=== PATIENT | female | born 1990 | race Two or more races ===

== ENCOUNTER 2019-12-01 09:41 | Inpatient (IN) | payer MEDICAID ==
[~2019-12-01] VITALS: Ht 167.6 cm; Wt 86.4 kg
[2019-12-01 10:25] LABS: Basophils # (auto) 0 10 ^3/uL (0-0.2); Basophils % (auto) 0.2 % (0.0-2.0); Eosinophils # (auto) 0 10 ^3/uL (0-0.8); Hematocrit 36.5 % (36.0-46.0); Hemoglobin 12.7 g/dL (12.2-16.2); Lymphocytes # (auto) 0.9 10 ^3/uL (0.4-5.4); Lymphocytes % (auto) 6.2 % (10.0-50.0); Mean Corpuscular Hemoglobin 31.2 pg (28.0-32.0); Mean Corpuscular Hgb Conc. 34.8 g/dL (32.0-36.0); Mean Corpuscular Volume 89.6 fL (80.0-100.0); Monocytes # (auto) 0.6 10 ^3/uL (0-1.3); Monocytes % (auto) 4.5 % (0.0-12.0); Neutrophils # (auto) 12.4 10 ^3/uL (1.6-8.6); Neutrophils % (auto) 89.1 % (37.0-80.0); Platelet Count (auto) 305 10^3/uL (140-450); Red Blood Cells 4.08 10^6/uL (4.0-5.20); Red Cell Distribution Width 13.1 % (11.8-14.3); White Blood Cell 13.9 10^3/uL (4.4-10.8)
[2019-12-01] MEDS ORDERED: SODIUM CHLORIDE 0.9% 1,000 ML IV ONE (10:34)
[2019-12-01] MEDS ORDERED: cefTRIAXone 1GM/50ML D5W 50 ML IV ONE (10:45)
[2019-12-01] MEDS ORDERED: DexAMETHasone SOD PHOS 10MG/1ML VIAL INJ IV ONE (10:45)
[2019-12-01] MEDS ORDERED: AZITHROMYCIN 500MG/ 250ML 250 ML IV ONE (10:45)
[2019-12-01 11:14] LABS: Albumin 2.7 g/dL (3.4-5.0); Calcium 8.6 mg/dL (8.5-10.1); Potassium 3.1 mmol/L (3.5-5.1)
[2019-12-01 11:17] LABS: BUN/Creatinine Ratio 15.4; Bilirubin, Total 1.4 mg/dL (0.2-1.0); Total Protein 7.6 g/dL (6.4-8.2)
[2019-12-01 13:44] LABS: Urine Bacteria NONE SEEN /hpf (None Seen); Urine Blood Negative /uL (Negative); Urine Mucus FEW (None Seen); Urine Specific Gravity 1.033 (1.001-1.035); Urine WBC 5 /hpf (0 - 5)
[2019-12-01 14:10] LABS: INR 0.92 (0.9-1.15); Partial Thromboplastin Time 30.7 sec (23.0-31.2)
[2019-12-01] MEDS ORDERED: ACETAMINOPHEN 500 MG TAB PO ONE (16:00)
[2019-12-01] MEDS ORDERED: POTASSIUM EFFERVESENT TAB 25 MEQ PO ONE (16:30)
[2019-12-01] MEDS ORDERED: MORPHINE SULF INJ 2 MG/ML SYRINGE 1ML IV PRN ×2 (18:15→20:15)
[2019-12-01] MEDS ORDERED: NITROGLYCERIN 0.4 MG SL TAB SL PRN ×2 (18:15→20:15)
[2019-12-01] MEDS ORDERED: DexAMETHasone 4 MG TAB PO ONE (20:00)
[2019-12-01] MEDS ORDERED: POTASSIUM CHLORIDE 40 MEQ, LIDOCAINE 1% (LOCAL ANESTH.) 4 ML in SODIUM CHL 0.9% 100 ML IV ONE (20:00)
[2019-12-01] MEDS ORDERED: SODIUM CHLORIDE 0.9% 1,000 ML IV SCH (20:03)
--- NOTE | 2019-12-01 20:05 | NUR ---
Telemetry admit from ER DIGNAXUAN Day admitted to Telemetry unit after SBAR received. Patient oriented to LINDA BRADLEY RN primary RN, unit, room, bed, and unit policies regarding patient care and visiting hours. Patient now on continuous telemetry monitoring, tele box # 16 and telemetry reading on arrival to unit is Sinus Rhythm at 83BPM. Patient placed on bedside oxygen, weighed by bed scale and encouraged to call if they need something. All questions and concerns addressed, patient verbalized understanding.
[2019-12-01] MEDS ORDERED: ACETAMINOPHEN 500 MG TAB PO PRN (20:15)
[2019-12-01 20:42] LABS: Alcohol, Urine < 3.0 mg/dL (0-10); Amphetamine Screen, Urine NEGATIVE (NEGATIVE); Benzodiazephine Screen, Urine NEGATIVE (NEGATIVE); Cannabinoid Screen, Urine NEGATIVE (NEGATIVE); Cocaine Screen, Urine NEGATIVE (NEGATIVE); Opiate Scree,Urine NEGATIVE (NEGATIVE)
[2019-12-01 20:43] LABS: Barbiturate Scree,Urine NEGATIVE (NEGATIVE); Phencyclidine Screen, Urine NEGATIVE (NEGATIVE)
[2019-12-01] MEDS: CLINDAMYCIN 300MG IV 50 ML IV SCH (22:04)
[2019-12-01] MEDS ORDERED: POTASSIUM CHL 20MEQ/100ML 200 ML IV ONE (23:14)
[2019-12-01] MEDS: POTASSIUM CHL 20MEQ/100ML 100 ML IV SCH (23:53)
[2019-12-02] VITALS (8 sets, daily range): BP systolic 98–108; BP diastolic 54–72
[2019-12-02 00:23] LABS: Basophils # (auto) 0 10 ^3/uL (0-0.2); Eosinophils # (auto) 0 10 ^3/uL (0-0.8); Hematocrit 35.5 % (36.0-46.0); Hemoglobin 12.1 g/dL (12.2-16.2); Lymphocytes # (auto) 0.8 10 ^3/uL (0.4-5.4); Lymphocytes % (auto) 8.6 % (10.0-50.0); Mean Corpuscular Hgb Conc. 34.2 g/dL (32.0-36.0); Mean Corpuscular Volume 90.7 fL (80.0-100.0); Monocytes # (auto) 0.4 10 ^3/uL (0-1.3); Monocytes % (auto) 3.8 % (0.0-12.0); Neutrophils # (auto) 8.6 10 ^3/uL (1.6-8.6); Neutrophils % (auto) 87.6 % (37.0-80.0); Platelet Count (auto) 301 10^3/uL (140-450); Red Blood Cells 3.91 10^6/uL (4.0-5.20); Red Cell Distribution Width 13.2 % (11.8-14.3); White Blood Cell 9.8 10^3/uL (4.4-10.8)
[2019-12-02 01:22] LABS: Cholesterol 145 mg/dL (< 200); HDL Cholesterol 34 mg/dL (40-59); LDL Cholesterol 80 mg/dL (< 100); Triglycerides 235 mg/dL (< 150)
[2019-12-02] MEDS: POTASSIUM CHL 20MEQ/100ML 100 ML IV SCH (03:57)
[2019-12-02] MEDS: CLINDAMYCIN 300MG IV 50 ML IV SCH ×3 (05:42→21:53)
[2019-12-02 05:46] LABS: Basophils # (auto) 0 10 ^3/uL (0-0.2); Basophils % (auto) 0.1 % (0.0-2.0); Eosinophils # (auto) 0 10 ^3/uL (0-0.8); Hematocrit 35.2 % (36.0-46.0); Hemoglobin 11.7 g/dL (12.2-16.2); Lymphocytes # (auto) 0.8 10 ^3/uL (0.4-5.4); Lymphocytes % (auto) 8.8 % (10.0-50.0); Mean Corpuscular Hemoglobin 30.1 pg (28.0-32.0); Mean Corpuscular Hgb Conc. 33.3 g/dL (32.0-36.0); Mean Corpuscular Volume 90.6 fL (80.0-100.0); Monocytes # (auto) 0.4 10 ^3/uL (0-1.3); Monocytes % (auto) 4.8 % (0.0-12.0); Neutrophils # (auto) 7.9 10 ^3/uL (1.6-8.6); Neutrophils % (auto) 86.3 % (37.0-80.0); Nucleated Red Blood Cells % 0.1 %; Platelet Count (auto) 306 10^3/uL (140-450); Red Blood Cells 3.89 10^6/uL (4.0-5.20); Red Cell Distribution Width 13.1 % (11.8-14.3); White Blood Cell 9.2 10^3/uL (4.4-10.8)
[2019-12-02 05:59] LABS: INR 0.91 (0.9-1.15); Partial Thromboplastin Time 29.7 sec (23.0-31.2)
[2019-12-02 06:03] LABS: Chloride 104 mmol/L (98-107); Potassium 3.7 mmol/L (3.5-5.1); Sodium 135 mmol/L (136-145)
[2019-12-02 06:17] LABS: Alanine Aminotransferase 16 U/L (13-56); Albumin 2.3 g/dL (3.4-5.0); Alkaline Phosphatase 66 U/L (45-117); Anion Gap 7 (5-15); Aspartate Aminotransferase 15 U/L (15-37); BUN/Creatinine Ratio 26.7; Blood Urea Nitrogen 8 mg/dL (7-18); Calcium 8.3 mg/dL (8.5-10.1); Carbon Dioxide 24 mmol/L (21-32); GFR African American 341 mL/min; GFR Non-African American 282 mL/min; Glucose 131 mg/dL (74-106); Magnesium 2.3 mg/dL (1.6-2.6); Phosphorus 3.2 mg/dL (2.5-4.90); Total Protein 6.9 g/dL (6.4-8.2); Uric Acid 3.4 mg/dL (2.6-6.0)
[2019-12-02] MEDS: ACETAMINOPHEN 325 MG TAB PO PRN ×2 (06:53→22:21)
--- NOTE | 2019-12-02 07:35 | NUR ---
Opening Shift Note Assumed care of patient, awake and alert. No S/S of distress, SOB at rest and with activity. Reports weakness, and back pain. Instructed on POC and to call for assist PRN, will continue to monitor for changes Q1hr and PRN.
[2019-12-02] MEDS: ASCORBIC ACID 1,000 MG TAB PO SCH (10:19)
[2019-12-02] MEDS: cefTRIAXone 1GM/50ML D5W 50 ML IV SCH (10:19)
[2019-12-02] MEDS: DexAMETHasone 4 MG TAB PO SCH (10:19)
[2019-12-02] MEDS: POTASSIUM CHL 20 Meq TABLET PO SCH (10:19)
[2019-12-02] MEDS: CHOLECALCIFEROL (VITD3) 2,000 UNIT CAP PO SCH (10:20)
[2019-12-02] MEDS: ENOXAPARIN SOD 40 MG/0.4 ML SYRINGE SC SCH (10:20)
[2019-12-02] MEDS: ONDANSETRON HCL 4 MG/2 ML VIAL IV PRN (11:04)
[2019-12-02] MEDS: ALUM & MAG HYDROX-SIMETH LIQ(MAALOX) 30 ML PO PRN (15:47)
--- NOTE | 2019-12-02 19:10 | NUR ---
Opening Shift Note Received report from jazmyn Gutierrez RN. Assumed care of patient, awake and alert. No S/S of distress, but SOB at rest and with slight activity. Patient reports weakness, and back pain. Instructed on POC and to call for assist PRN, will continue to monitor for changes Q1hr and PRN.
--- NOTE | 2019-12-02 20:30 | NUR ---
ROUNDS Assisted patient to and from the commode. No bowel movement this time. Patient urinated.
[2019-12-03] VITALS (7 sets, daily range): BP systolic 90–102; BP diastolic 51–61
[2019-12-03] MEDS: CLINDAMYCIN 300MG IV 50 ML IV SCH ×2 (05:37→15:34)
[2019-12-03] MEDS: ALUM & MAG HYDROX-SIMETH LIQ(MAALOX) 30 ML PO PRN (06:39)
[2019-12-03] MEDS: ACETAMINOPHEN 325 MG TAB PO PRN ×2 (06:39→18:20)
--- NOTE | 2019-12-03 07:30 | NUR ---
Opening Shift Note Assumed care of patient, awake and alert. No S/S of distress, SOB with activity, reports chest pain. Instructed on POC and to call for assist PRN, will continue to monitor for changes Q1hr and PRN.
[2019-12-03] MEDS: ONDANSETRON HCL 4 MG/2 ML VIAL IV PRN (09:26)
[2019-12-03] MEDS: cefTRIAXone 1GM/50ML D5W 50 ML IV SCH (10:46)
[2019-12-03] MEDS: DexAMETHasone 4 MG TAB PO SCH (10:46)
[2019-12-03] MEDS: ENOXAPARIN SOD 40 MG/0.4 ML SYRINGE SC SCH (10:47)
[2019-12-03] MEDS: POTASSIUM CHL 20 Meq TABLET PO SCH (10:47)
[2019-12-03] MEDS: ASCORBIC ACID 1,000 MG TAB PO SCH (10:47)
[2019-12-03] MEDS: CHOLECALCIFEROL (VITD3) 2,000 UNIT CAP PO SCH (10:47)
[2019-12-03] MEDS ORDERED: AZITHROMYCIN 250 MG TAB PO ONE (16:45)
--- NOTE | 2019-12-03 19:30 | NUR ---
Opening Shift Note Assumed care of patient, awake and alert. No S/S of distress/SOB or pain. Patient on 10L Oxymizer. Instructed on POC and to call for assist PRN, will continue to monitor for changes Q1hr and PRN.
[2019-12-04] VITALS (7 sets, daily range): BP systolic 90–110; BP diastolic 54–74
[2019-12-04] MEDS: ACETAMINOPHEN 325 MG TAB PO PRN (03:03)
--- NOTE | 2019-12-04 03:03 | NUR ---
Pain Patient c/o pain 3 to stomach and requested Tylenol. Pain medication administered.
--- NOTE | 2019-12-04 04:03 | NUR ---
RE Pain Patient resting with eyes closed, no sign of pain or distress. Will continue to monitor.
--- NOTE | 2019-12-04 06:50 | NUR ---
Respiratory note: PT IS RESTING COMFORTABLY. NO RESPIRATORY DISTRESS NOTED. SPO2 97% ON 3L OXYMIZER, HR 72, RR 18, BS CLEAR/DIMINISHED BILATERALLY. WILL CONTINUE TO MONITOR PT.
--- NOTE | 2019-12-04 08:00 | NUR ---
Received pt resting in bed, call light with in reach, no pain noted or reported, will continue to monitor pt.
--- NOTE | 2019-12-04 09:30 | NUR ---
Incentive spirometer given and educated on the importance, the need, how, and how often to use it, pt verbalized understanding, returned demonstration done, pt was able to do up to 500ml,
[2019-12-04] MEDS: cefTRIAXone 1GM/50ML D5W 50 ML IV SCH (10:10)
[2019-12-04] MEDS: CHOLECALCIFEROL (VITD3) 2,000 UNIT CAP PO SCH (10:11)
[2019-12-04] MEDS: AZITHROMYCIN 250 MG TAB PO SCH (10:11)
[2019-12-04] MEDS: ASCORBIC ACID 1,000 MG TAB PO SCH (10:11)
[2019-12-04] MEDS: POTASSIUM CHL 20 Meq TABLET PO SCH (10:11)
[2019-12-04] MEDS: ENOXAPARIN SOD 40 MG/0.4 ML SYRINGE SC SCH (10:11)
[2019-12-04] MEDS: DexAMETHasone 4 MG TAB PO SCH (10:11)
--- NOTE | 2019-12-04 12:57 | NUR ---
Est energy needs 5519-4189 kcal (20-22 kcal/kg BW 93.4kg) Est protein needs 59-89g (1-1.5g/kg IBW 59.1kg) Will reassess prn. Addendum: 12/04/19 at [address] Amended: Links added.
--- NOTE | 2019-12-04 17:40 | NUR ---
Dr. Noel / deng at bed side to see pt. Doctor discussed the plan of care with pt.
--- NOTE | 2019-12-04 17:49 | NUR ---
ABG DRAWN FROM RIGHT RADIAL ON 3L OXYMIZER. RESULTS UPDATED ON RAPIDClassifEyeM. NO CRITICAL VALUES.
--- NOTE | 2019-12-04 17:59 | NUR ---
Dr. Figueroa at bed side to see pt, doctor discussed the plan of care with pt.
--- NOTE | 2019-12-04 19:20 | NUR ---
Opening Shift Note Assumed care of patient, awake and alert. No S/S of distress/SOB or pain. Patient on 3L oxymizer. Instructed on POC and to call for assist PRN, will continue to monitor for changes Q1hr and PRN.
[2019-12-05] VITALS (7 sets, daily range): BP systolic 106–115; BP diastolic 68–76
[2019-12-05 07:31] LABS: Basophils # (auto) 0 10 ^3/uL (0-0.2); Basophils % (auto) 0.1 % (0.0-2.0); Eosinophils # (auto) 0.1 10 ^3/uL (0-0.8); Eosinophils % (auto) 0.6 % (0.0-7.0); Hematocrit 34.1 % (36.0-46.0); Hemoglobin 11.9 g/dL (12.2-16.2); Lymphocytes # (auto) 1.5 10 ^3/uL (0.4-5.4); Lymphocytes % (auto) 16.4 % (10.0-50.0); Mean Corpuscular Hemoglobin 31.3 pg (28.0-32.0); Mean Corpuscular Hgb Conc. 34.8 g/dL (32.0-36.0); Monocytes # (auto) 0.7 10 ^3/uL (0-1.3); Monocytes % (auto) 7.5 % (0.0-12.0); Neutrophils # (auto) 6.7 10 ^3/uL (1.6-8.6); Neutrophils % (auto) 75.4 % (37.0-80.0); Platelet Count (auto) 404 10^3/uL (140-450); Red Blood Cells 3.79 10^6/uL (4.0-5.20); White Blood Cell 8.9 10^3/uL (4.4-10.8)
[2019-12-05 07:42] LABS: Potassium 3.6 mmol/L (3.5-5.1)
[2019-12-05 07:48] LABS: Albumin 2.4 g/dL (3.4-5.0); BUN/Creatinine Ratio 26.9; Bilirubin, Total 0.6 mg/dL (0.2-1.0); Calcium 8.6 mg/dL (8.5-10.1); Total Protein 6.5 g/dL (6.4-8.2)
--- NOTE | 2019-12-05 08:00 | NUR ---
Received pt resting in bed, call light with in reach, no pain noted or reported, currently pt's O2 sat 95% at 3 lit via oxymizer, decreased O2 to 2 lit via oxymizer, will continue to monitor pt.
[2019-12-05] MEDS: cefTRIAXone 1GM/50ML D5W 50 ML IV SCH (09:12)
[2019-12-05] MEDS: CHOLECALCIFEROL (VITD3) 2,000 UNIT CAP PO SCH (09:13)
[2019-12-05] MEDS: POTASSIUM CHL 20 Meq TABLET PO SCH (09:13)
[2019-12-05] MEDS: DexAMETHasone 4 MG TAB PO SCH (09:13)
[2019-12-05] MEDS: ASCORBIC ACID 1,000 MG TAB PO SCH (09:13)
[2019-12-05] MEDS: AZITHROMYCIN 250 MG TAB PO SCH (09:13)
[2019-12-05] MEDS: ENOXAPARIN SOD 40 MG/0.4 ML SYRINGE SC SCH (09:14)
--- NOTE | 2019-12-05 15:39 | NUR ---
Received a call from Dr. Boone / OBGYN to inquire on the pt's status, received order to do doppler tone Qshift, complete OB US, vitamins.
--- NOTE | 2019-12-05 15:44 | NUR ---
assessment Patient is a 28 year old female who is alert and oriented. Patients cognitive abilities are intact. Prior to admission patient lived home with her and family and functioned independently. Patient informed me she is able to care for her own ADLs. Per patient she will return home to her prior living arrangements post discharge and family will transport her home. Patient informed me she had no need for DME or oxygen prior to admission. Patient informed me her PCP is Dr Arana. Patient has no safety concerns regarding returning home on discharge. I informed patient I will continue to monitor and follow up as appropriate for any discharge needs. I informed patient she has a right to speak to a psychotherapist social worker regarding all care. I informed patient she has a right to participate in any and all discharge planning. Patient does not have a POA and advanced directive. I have offered patient information on POA and advanced directives. I informed the patient the advantages and benefits of having an Advanced Directive. Patient verbalized understanding and agreed to discharge plan. Addendum: 12/05/19 at 1547 by Radha ALTAMIRANO Amended: Links added.
--- NOTE | 2019-12-05 16:30 | NUR ---
heart tones heart tones of 142 bpm observed and heard via ultrasound at 18 weeks as per patient reports. Ultrasound at bedside to perform OB complete.
--- NOTE | 2019-12-05 16:40 | NUR ---
interventional technologist at bed side to do the complete ob ultrasound, L&D nurse at bed side to do the doppler tone test.
--- NOTE | 2019-12-05 18:00 | NUR ---
Dr. Duarte at bed side to see pt, doctor informed that pt was titrated from 3 lit O2 via oxymizer to 2 lit, pt's O2 sat 97%, pt changed to 2 lit via N/C, pt's O2 sat 96%, will continue to monitor pt.
--- NOTE | 2019-12-05 18:30 | NUR ---
Decreased pt's O2 to 1 lit via N/C, pt's O2 sat at 95%, will continue to monitor pt.
--- NOTE | 2019-12-05 19:20 | NUR ---
Opening Shift Note Assumed care of patient, awake and alert. No S/S of distress/SOB or pain. Patient on 1L NC. Instructed on POC and to call for assist PRN, will continue to monitor for changes Q1hr and PRN.
--- NOTE | 2019-12-05 22:19 | NUR ---
Walked Around Station Patient walked around the station on RA, patient oxygen saturation stayed between 90-91%. Patient tolerated walking well but once in the room she had a minimal cough spell.
[2019-12-06] VITALS (7 sets, daily range): BP systolic 103–113; BP diastolic 62–73
--- NOTE | 2019-12-06 04:20 | NUR ---
LD Nurse LD nurse at bedside.
--- NOTE | 2019-12-06 04:20 | NUR ---
Heart Tones heart tones obtained at 135bpm over 1 minute via doppler on 18.6 weeks EGA dated on Ultrasound on 12/05/2019.
--- NOTE | 2019-12-06 06:30 | NUR ---
Respiratory note: POX CHECK, NO RESP DISTRESS NOTED. HR 80, RR16, SPO2 96% ON 2L N/C.
--- NOTE | 2019-12-06 09:03 | NUR ---
FHT's FHT's obtained via doppler x 1 minute at 148 bpm.
[2019-12-06] MEDS: PRENATAL VITAMIN TAB PO SCH (09:40)
[2019-12-06] MEDS: POTASSIUM CHL 20 Meq TABLET PO SCH (09:40)
[2019-12-06] MEDS: DexAMETHasone 4 MG TAB PO SCH (09:40)
[2019-12-06] MEDS: cefTRIAXone 1GM/50ML D5W 50 ML IV SCH (09:40)
[2019-12-06] MEDS: ASCORBIC ACID 1,000 MG TAB PO SCH (09:41)
[2019-12-06] MEDS: ENOXAPARIN SOD 40 MG/0.4 ML SYRINGE SC SCH (09:41)
[2019-12-06] MEDS: AZITHROMYCIN 250 MG TAB PO SCH (09:41)
[2019-12-06] MEDS: CHOLECALCIFEROL (VITD3) 2,000 UNIT CAP PO SCH (09:41)
--- NOTE | 2019-12-06 23:45 | NUR ---
FHT'S FHT'S 152 OBTAINED BY THIS RN. Addendum: 12/07/19 at 0005 by HATTIE SCHMITZ RN RN FHT'S 152 obtained via doppler x1 minute by this RN. This RN called pedro sharma and informed the pt's nurse Leonie of the FHT's and that I would chart a note.
--- NOTE | 2019-12-07 00:01 | NUR ---
Mohini from L & D reported FHT's if 152.
[2019-12-07 05:11] VITALS: BP 113/73
[2019-12-07 06:38] LABS: Basophils # (auto) 0 10 ^3/uL (0-0.2); Basophils % (auto) 0.1 % (0.0-2.0); Eosinophils # (auto) 0.1 10 ^3/uL (0-0.8); Hematocrit 35.2 % (36.0-46.0); Hemoglobin 12.1 g/dL (12.2-16.2); Lymphocytes % (auto) 20.5 % (10.0-50.0); Mean Corpuscular Hgb Conc. 34.4 g/dL (32.0-36.0); Mean Corpuscular Volume 90.1 fL (80.0-100.0); Monocytes # (auto) 0.8 10 ^3/uL (0-1.3); Monocytes % (auto) 8.3 % (0.0-12.0); Neutrophils # (auto) 6.8 10 ^3/uL (1.6-8.6); Neutrophils % (auto) 70.1 % (37.0-80.0); Nucleated Red Blood Cells % 0.2 %; Platelet Count (auto) 440 10^3/uL (140-450); White Blood Cell 9.7 10^3/uL (4.4-10.8)
--- NOTE | 2019-12-07 06:40 | NUR ---
ROUNDS Patient is resting in bed awake and alert. Smiling, no distress noted and patient denies pain. Patient requested hot water and sugar.
[2019-12-07 06:50] LABS: Albumin 2.7 g/dL (3.4-5.0); Calcium 8.9 mg/dL (8.5-10.1); Potassium 3.6 mmol/L (3.5-5.1)
[2019-12-07 06:54] LABS: BUN/Creatinine Ratio 21.4; Bilirubin, Total 0.5 mg/dL (0.2-1.0); CRP High Sensitivity 0.64 mg/dL (< 0.3); Total Protein 6.9 g/dL (6.4-8.2)
[2019-12-07 08:00] VITALS: BP 110/68
[2019-12-07 09:00] VITALS: BP 109/70
--- NOTE | 2019-12-07 09:35 | NUR ---
FHT'S 150.
[2019-12-07] MEDS: PRENATAL VITAMIN TAB PO SCH (10:00)
[2019-12-07] MEDS: cefTRIAXone 1GM/50ML D5W 50 ML IV SCH (10:35)
[2019-12-07] MEDS: CHOLECALCIFEROL (VITD3) 2,000 UNIT CAP PO SCH (10:44)
[2019-12-07] MEDS: DexAMETHasone 4 MG TAB PO SCH (10:44)
[2019-12-07] MEDS: ASCORBIC ACID 1,000 MG TAB PO SCH (10:44)
[2019-12-07] MEDS: ENOXAPARIN SOD 40 MG/0.4 ML SYRINGE SC SCH (10:45)
[2019-12-07] MEDS: AZITHROMYCIN 250 MG TAB PO SCH (10:45)
--- NOTE | 2019-12-07 12:17 | NUR ---
Nutrition Followup Note Wt 86.4 kg Pt`s in COVID isolation wing, unable to talk. per records pt is 18 weeks . pt is currently on CCHO 75 gm diet with adequate PO of 75% x 4 per RN doc Est energy needs 0341-2358 kcal (20-22 kcal/kg BW 93.4kg) Est protein needs 59-89g (1-1.5g/kg IBW 59.1kg) Will reassess prn. . Labs: ALB 2.7 L BM: 1 BM today per Rn note Skin: Bs 22 low risk, full details in geriatric personal care aide note PES: Altered nutrition related lab values current/chronic medical condition aeb mod hypoalb Comments Will continue to monitor PO status, skin status, pertinent labs and weight trends. Will f/u in 3-5 days. Rec: 1) continue to monitor po intake, labs, skin 2) refer pt to [facility] on DC 3) Continue current plan of Care Addendum: 12/07/19 at [address] Rec: regular diet as pt with no hx of DM and labs wnl
[2019-12-07] MEDS ORDERED: CEPH-37 PO (12:32)
[2019-12-07] MEDS ORDERED: FAMO20TA10 PO (12:32)
[2019-12-07] MEDS ORDERED: PRED20TA2 PO (12:32)
[2019-12-07 12:45] VITALS: BP 110/77
[2019-12-07 13:00] VITALS: BP 111/70
--- NOTE | 2019-12-07 14:30 | NUR ---
patient IV discontinued, catheter intact, patient tele monitor returned to [facility], patient discharged from facility. Patient verbalized understanding of discharge instructions, and medications. Patient will see her OBGYN today.
== END 2019-12-07 14:20 | disposition home or self-care (01) | DRG 566 ==
LOC: ER 09:41 → EAST 09:42 → TELE-EAST 21:26
PROVIDERS: ADMIT Hospitalist; ATTEND Internal Medicine
DX: O98.512 Other viral diseases complicating pregnancy, second trimester (principal); U07.1 COVID-19; J12.89 Other viral pneumonia; O99.212 Obesity complicating pregnancy, second trimester; Z3A.18 18 weeks gestation of pregnancy; E87.6 Hypokalemia; O23.42 Unspecified infection of urinary tract in pregnancy, second trimester; O99.512 Diseases of the respiratory system complicating pregnancy, second trimester; E16.2 Hypoglycemia, unspecified; J98.11 Atelectasis; F32.9 Major depressive disorder, single episode, unspecified; E66.9 Obesity, unspecified; F41.1 Generalized anxiety disorder; J45.909 Unspecified asthma, uncomplicated; J96.01 Acute respiratory failure with hypoxia; O99.342 Other mental disorders complicating pregnancy, second trimester; O99.282 Endocrine, nutritional and metabolic diseases complicating pregnancy, second trimester; Z91.19 Patient's noncompliance with other medical treatment and regimen; Z90.49 Acquired absence of other specified parts of digestive tract
CPT/HCPCS: 36415; 36600; 71045; 76805; 80053; 80061; 80307; 81001; 81025; 82728; 82805; 83036; 83605; 83615; 83735; 83880; 84100; 84443; 84484; 84550; 84702; 85025; 85379; 85610; 85730; 86141; 87040; 87070; 87086; 87804; 87880; 93005; 94760; 94762; 96365; 96368; 96375; 99291; G0378; J0696; J1100; J2001; J2405; J3480; J3490

== ENCOUNTER 2024-01-13 11:15 | Observation (INO) | payer MEDICAID ==
[~2024-01-13 11:15] MED LIST: CEPH-37 PO; FAMO20TA10 PO; PRED20TA2 PO
[2024-01-13] MEDS ORDERED: METF500S3 PO (13:13)
[2024-01-13] MEDS ORDERED: GLYB5TAB8 PO (13:14)
== END 2024-01-13 13:31 | disposition home or self-care (01) ==
LOC: LDRP 11:15
PROVIDERS: ADMIT Obstetrics & Gynecology; ATTEND Obstetrics & Gynecology
DX: O24.419 Gestational diabetes mellitus in pregnancy, unspecified control (principal); O26.892 Other specified pregnancy related conditions, second trimester; N89.8 Other specified noninflammatory disorders of vagina; Z3A.28 28 weeks gestation of pregnancy
CPT/HCPCS: 59025; 81002; 82948; 82962; G0378

== ENCOUNTER 2024-02-03 01:39 | Observation (INO) | payer MEDICAID ==
[~2024-02-03 01:39] MED LIST changes: +GLYB5TAB8 PO; +METF500S3 PO
[2024-02-14] MEDS ORDERED: PREN-96 PO (13:17)
== END 2024-02-14 13:36 | disposition home or self-care (01) ==
LOC: UNDOADMOB 19:23 → LDRP 19:23
PROVIDERS: ADMIT Obstetrics & Gynecology; ATTEND Obstetrics & Gynecology
DX: O24.419 Gestational diabetes mellitus in pregnancy, unspecified control (principal); O26.893 Other specified pregnancy related conditions, third trimester; R06.02 Shortness of breath; R10.9 Unspecified abdominal pain; Z3A.32 32 weeks gestation of pregnancy
CPT/HCPCS: 76818; 82962; G0378; 59025; 81002; 82948; 94760

== ENCOUNTER 2024-02-04 16:17 | Observation (INO) | payer MEDICAID | END 2024-02-04 17:28 | disposition home or self-care (01) | LOC: LDRP 16:17 | PROVIDERS: ADMIT Obstetrics & Gynecology; ATTEND Obstetrics & Gynecology | DX: O24.419 Gestational diabetes mellitus in pregnancy, unspecified control (principal); Z3A.31 31 weeks gestation of pregnancy; Z79.899 Other long term (current) drug therapy | CPT/HCPCS: 59025; 81002; 82948; 94760; G0378 ==

== ENCOUNTER 2024-02-07 12:20 | Observation (INO) | payer MEDICAID ==
[2024-02-07] MEDS ORDERED: BETAMETHASONE ACET (30mg/5ml) 5ml Vial 6mg/ml IM ONE (13:30)
[2024-02-07] MEDS ORDERED: BETAMETHASONE ACET (30mg/5ml) 5ml Vial 6mg/ml ONE (13:37)
[2024-02-07 13:39] LABS: Urine Bacteria None Seen /hpf (None Seen)
[2024-02-07 13:51] LABS: Basophils # (auto) 0.1 10 ^3/uL (0-0.2); Basophils % (auto) 0.4 % (0.0-2.0); Eosinophils # (auto) 0.1 10 ^3/uL (0-0.8); Eosinophils % (auto) 0.8 % (0.0-7.0); Hematocrit 38.9 % (36.0-46.0); Hemoglobin 13.1 g/dL (12.2-16.2); Lymphocytes # (auto) 2.1 10 ^3/uL (0.4-5.4); Lymphocytes % (auto) 18.2 % (10.0-50.0); Mean Corpuscular Hemoglobin 30.2 pg (28.0-32.0); Mean Corpuscular Hgb Conc. 33.6 g/dL (32.0-36.0); Monocytes # (auto) 0.7 10 ^3/uL (0-1.3); Neutrophils # (auto) 8.6 10 ^3/uL (1.6-8.6); Neutrophils % (auto) 74.6 % (37.0-80.0); Platelet Count (auto) 247 10^3/uL (140-450); Red Blood Cells 4.32 10^6/uL (4.0-5.20); Red Cell Distribution Width 14.5 % (11.8-14.3); White Blood Cell 11.5 10^3/uL (4.4-10.8)
[2024-02-07 14:07] LABS: INR 0.95 (0.9-1.15); Partial Thromboplastin Time 27.8 SEC (24.5-34.5); Prothrombin Time 10.1 sec (9.3-11.8)
[2024-02-07 14:18] LABS: Alanine Aminotransferase 10 U/L (7-40); Albumin 4.3 g/dL (3.2-4.8); Alkaline Phosphatase 81 U/L (46-116); Anion Gap 11 (5-15); Aspartate Aminotransferase < 8 U/L (13-40); BUN/Creatinine Ratio 18.8 (10.0-20.0); Bilirubin, Total 0.7 mg/dL (0.2-1.0); Blood Urea Nitrogen 9 mg/dL (9-23); Calcium 9.6 mg/dL (8.7-10.4); Carbon Dioxide 21 mmol/L (20-31); Chloride 105 mmol/L (98-107); Glucose 87 mg/dL (74-106); Potassium 3.7 mmol/L (3.5-5.1); Sodium 137 mmol/L (136-145); Uric Acid 3.2 mg/dL (3.1-7.8)
[2024-02-07 14:22] LABS: Urine Blood Negative /uL (Negative); Urine Clarity Clear (Clear); Urine Color Yellow (Yellow); Urine Mucus FEW (None Seen); Urine Protein, UAD TRACE (Negative); Urine Specific Gravity 1.025 (1.001-1.035); Urine Urobilinogen Normal (Negative); Urine WBC 1 /hpf (0 - 5); Urine pH 5.5 (5.0-9.0)
[2024-02-07 16:07] LABS: Protein, Urine 21.8 mg/dL (1-14)
[2024-02-07 16:09] LABS: Amphetamine Screen, Urine Neg (NEGATIVE); Creatinine, Urine 144.26 mg/dL (30.0-125.0); Urine Protein/Creatinine Ratio 0.15
[2024-02-07 16:10] LABS: Barbiturate Scree,Urine Neg (NEGATIVE); Benzodiazephine Screen, Urine Neg (NEGATIVE); Cocaine Screen, Urine Neg (NEGATIVE)
[2024-02-07 16:11] LABS: Cannabinoid Screen, Urine Neg (NEGATIVE); Opiate Scree,Urine Neg (NEGATIVE)
[2024-02-07 16:55] LABS: Phencyclidine Screen, Urine Neg (NEGATIVE)
== END 2024-02-07 14:15 | disposition home or self-care (01) ==
LOC: LDRP 12:20 → UNDOADMOB 12:20 → LDRP 13:10
PROVIDERS: ADMIT Obstetrics & Gynecology; ATTEND Obstetrics & Gynecology
DX: O99.513 Diseases of the respiratory system complicating pregnancy, third trimester (principal); J45.909 Unspecified asthma, uncomplicated; O24.410 Gestational diabetes mellitus in pregnancy, diet controlled; R53.1 Weakness; Z3A.31 31 weeks gestation of pregnancy; Z79.899 Other long term (current) drug therapy; Z98.890 Other specified postprocedural states
CPT/HCPCS: 36415; 59025; 70551; 76818; 80053; 80307; 81001; 81002; 82570; 82948; 82962; 84156; 84484; 84550; 85025; 85610; 85730; 86850; 86900; 86901; 96360; 96361; G0378; J0702

== ENCOUNTER 2024-02-07 14:14 | Emergency (ER) | payer MEDICAID ==
[~2024-02-07] VITALS: Ht 162.6 cm; Wt 86.3 kg
[2024-02-07 14:45] VITALS: PULSE 86; RESP 24; O2SAT 98
[2024-02-07 15:30] VITALS: BP 122/81; PULSE 92; RESP 38; TEMP 98.2; O2SAT 100
[2024-02-07 15:36] LABS: Basophils # (auto) 0 10 ^3/uL (0-0.2); Basophils % (auto) 0.2 % (0.0-2.0); Eosinophils # (auto) 0.1 10 ^3/uL (0-0.8); Eosinophils % (auto) 0.6 % (0.0-7.0); Hematocrit 38.6 % (36.0-46.0); Hemoglobin 12.9 g/dL (12.2-16.2); Lymphocytes # (auto) 1.6 10 ^3/uL (0.4-5.4); Lymphocytes % (auto) 14.4 % (10.0-50.0); Mean Corpuscular Hemoglobin 30.4 pg (28.0-32.0); Mean Corpuscular Hgb Conc. 33.6 g/dL (32.0-36.0); Mean Corpuscular Volume 90.5 fL (80.0-100.0); Monocytes # (auto) 0.4 10 ^3/uL (0-1.3); Monocytes % (auto) 3.9 % (0.0-12.0); Neutrophils # (auto) 9.2 10 ^3/uL (1.6-8.6); Neutrophils % (auto) 80.9 % (37.0-80.0); Nucleated Red Blood Cells % 0.3 %; Platelet Count (auto) 239 10^3/uL (140-450); Red Blood Cells 4.26 10^6/uL (4.0-5.20); Red Cell Distribution Width 14.6 % (11.8-14.3); White Blood Cell 11.4 10^3/uL (4.4-10.8)
[2024-02-07 15:57] LABS: INR 0.96 (0.9-1.15); Partial Thromboplastin Time 28.2 SEC (24.5-34.5); Prothrombin Time 10.2 sec (9.3-11.8)
[2024-02-07 15:58] LABS: Albumin 4.2 g/dL (3.2-4.8); Alkaline Phosphatase 78 U/L (46-116); Anion Gap 11 (5-15); Aspartate Aminotransferase < 8 U/L (13-40); Bilirubin, Total 0.7 mg/dL (0.2-1.0); Calcium 9.7 mg/dL (8.7-10.4); Carbon Dioxide 18 mmol/L (20-31); Chloride 107 mmol/L (98-107); Glucose 93 mg/dL (74-106); Potassium 3.8 mmol/L (3.5-5.1); Sodium 136 mmol/L (136-145); Total Protein 7.2 g/dL (5.7-8.2)
[2024-02-07 15:59] LABS: Alanine Aminotransferase < 9 U/L (7-40); BUN/Creatinine Ratio 11.9 (10.0-20.0); Blood Urea Nitrogen < 5 mg/dL (9-23)
== END 2024-02-07 15:44 | disposition short-term general hospital (02) ==
LOC: ER 14:16
DX: O99.413 Diseases of the circulatory system complicating pregnancy, third trimester (principal); J45.909 Unspecified asthma, uncomplicated; Z3A.31 31 weeks gestation of pregnancy; Z90.49 Acquired absence of other specified parts of digestive tract
CPT/HCPCS: 36415; 80053; 85025; 85610; 85730

== ENCOUNTER 2024-02-10 13:16 | Observation (INO) | payer MEDICAID | END 2024-02-10 15:57 | disposition home or self-care (01) | LOC: LDRP 13:16 | PROVIDERS: ADMIT Obstetrics & Gynecology; ATTEND Obstetrics & Gynecology | DX: O24.419 Gestational diabetes mellitus in pregnancy, unspecified control (principal); Z3A.32 32 weeks gestation of pregnancy | CPT/HCPCS: 59025; 76818; 81002; 82948; 82962; 94760; G0378 ==

== ENCOUNTER 2024-02-17 14:03 | Observation (INO) | payer MEDICAID ==
[~2024-02-17 14:03] MED LIST changes: +PREN-96 PO
== END 2024-02-28 17:55 | disposition home or self-care (01) ==
LOC: LDRP 02-28 15:15 → UNDOADMOB 02-28 15:15 → LDRP 02-28 16:13 → UNDODISOB 02-28 17:55
PROVIDERS: ADMIT Obstetrics & Gynecology; ATTEND Obstetrics & Gynecology
DX: O24.419 Gestational diabetes mellitus in pregnancy, unspecified control (principal); Z3A.34 34 weeks gestation of pregnancy; Z79.899 Other long term (current) drug therapy; Z98.890 Other specified postprocedural states
CPT/HCPCS: 59025; 76818; 81002; 82948; 82962; G0378

== ENCOUNTER 2024-02-18 13:00 | Observation (INO) | payer MEDICAID | END 2024-02-18 14:20 | disposition home or self-care (01) | LOC: LDRP 13:00 | PROVIDERS: ADMIT Obstetrics & Gynecology; ATTEND Obstetrics & Gynecology | DX: O24.419 Gestational diabetes mellitus in pregnancy, unspecified control (principal); Z3A.33 33 weeks gestation of pregnancy; Z79.899 Other long term (current) drug therapy; Z98.890 Other specified postprocedural states | CPT/HCPCS: 59025; 76818; 81002; 82948; 82962; 94760; G0378 ==

== ENCOUNTER 2024-02-21 11:57 | Observation (INO) | payer MEDICAID | END 2024-02-21 13:25 | disposition home or self-care (01) | LOC: LDRP 11:57 → UNDOADMOB 11:57 → LDRP 12:12 → UNDODISOB 13:25 | PROVIDERS: ADMIT Obstetrics & Gynecology; ATTEND Obstetrics & Gynecology | DX: O24.419 Gestational diabetes mellitus in pregnancy, unspecified control (principal); Z3A.33 33 weeks gestation of pregnancy; Z79.899 Other long term (current) drug therapy; Z98.890 Other specified postprocedural states | CPT/HCPCS: 59025; 76818; 81002; 82948; 82962; G0378 ==

== ENCOUNTER 2024-03-03 14:06 | Observation (INO) | payer MEDICAID ==
[2024-03-03] MEDS ORDERED: METF-372 PO (15:53)
== END 2024-03-03 16:10 | disposition home or self-care (01) ==
LOC: LDRP 14:06
PROVIDERS: ADMIT Obstetrics & Gynecology; ATTEND Obstetrics & Gynecology
DX: O24.419 Gestational diabetes mellitus in pregnancy, unspecified control (principal); O62.9 Abnormality of forces of labor, unspecified; Z3A.35 35 weeks gestation of pregnancy; Z79.899 Other long term (current) drug therapy; Z98.890 Other specified postprocedural states
CPT/HCPCS: 59025; 76818; 81002; 82948; 82962; 94760; G0378

== ENCOUNTER → 2024-03-06 | Outpatient (CLI) | payer MEDICAID ==
[~2024-03-06] MED LIST changes: +METF-372 PO; -METF500S3 PO
[2024-03-06 12:40] LABS: Basophils # (auto) 0 10 ^3/uL (0-0.2); Basophils % (auto) 0.4 % (0.0-2.0); Eosinophils # (auto) 0.1 10 ^3/uL (0-0.8); Eosinophils % (auto) 0.9 % (0.0-7.0); Hematocrit 37.8 % (36.0-46.0); Hemoglobin 12.9 g/dL (12.2-16.2); Lymphocytes # (auto) 2.1 10 ^3/uL (0.4-5.4); Lymphocytes % (auto) 21.3 % (10.0-50.0); Mean Corpuscular Hemoglobin 30.7 pg (28.0-32.0); Mean Corpuscular Hgb Conc. 34.2 g/dL (32.0-36.0); Mean Corpuscular Volume 89.9 fL (80.0-100.0); Monocytes # (auto) 0.6 10 ^3/uL (0-1.3); Monocytes % (auto) 5.7 % (0.0-12.0); Neutrophils % (auto) 71.7 % (37.0-80.0); Platelet Count (auto) 236 10^3/uL (140-450); Red Blood Cells 4.21 10^6/uL (4.0-5.20); White Blood Cell 9.8 10^3/uL (4.4-10.8)
[2024-03-07 05:08] LABS: RPR Non Reactive (Non Reactive)
[2024-03-07 16:06] LABS: Chlamydia Trachomatis, NAA Negative (Negative); Neisseria gonorrhoeae, NAA Negative (Negative)
== END | disposition home or self-care (01) ==
LOC: LAB 12:18
PROVIDERS: ATTEND Obstetrics & Gynecology
DX: Z34.80 Encounter for supervision of other normal pregnancy, unspecified trimester (principal); Z72.51 High risk heterosexual behavior
CPT/HCPCS: 36415; 85025; 86592

== ENCOUNTER 2024-03-07 14:25 | Observation (INO) | payer MEDICAID ==
--- NOTE | 2024-03-13 13:44 | DVH ---
BIOPHYSICAL PROFILE HISTORY: GDMA2 TECHNIQUE: Multiple transabdominal real-time grayscale sonographic images through the gravid uterus of the fetus with duplex Doppler color flow and M-mode spectral analysis FINDINGS: BIOPHYSICAL PROFILE: breathing score: 2 movement score: 2 tone score: 2 Quantitative KIMI score: 2 (KIMI: 17 Cm.) Total score: 8 The cervix was not seen IMPRESSION: Biophysical profile score: 8/8
[2024-03-13 14:31] LABS: Basophils # (auto) 0 10 ^3/uL (0-0.2); Basophils % (auto) 0.4 % (0.0-2.0); Eosinophils # (auto) 0.1 10 ^3/uL (0-0.8); Eosinophils % (auto) 0.6 % (0.0-7.0); Hematocrit 37.6 % (36.0-46.0); Lymphocytes # (auto) 2.2 10 ^3/uL (0.4-5.4); Lymphocytes % (auto) 21.1 % (10.0-50.0); Mean Corpuscular Hemoglobin 31.3 pg (28.0-32.0); Mean Corpuscular Hgb Conc. 34.6 g/dL (32.0-36.0); Mean Corpuscular Volume 90.4 fL (80.0-100.0); Monocytes # (auto) 0.6 10 ^3/uL (0-1.3); Monocytes % (auto) 5.7 % (0.0-12.0); Neutrophils # (auto) 7.5 10 ^3/uL (1.6-8.6); Neutrophils % (auto) 72.2 % (37.0-80.0); Nucleated Red Blood Cells % 0.1 %; Platelet Count (auto) 232 10^3/uL (140-450); Red Blood Cells 4.16 10^6/uL (4.0-5.20); Red Cell Distribution Width 15.3 % (11.8-14.3); White Blood Cell 10.4 10^3/uL (4.4-10.8)
--- NOTE | 2024-03-13 20:40 | DVHDS2 ---
Physician Discharge Progress N Final Diagnosis: testing for GDM, A2 Operations or Procedures: Operations or Procedures 33yo IUP@36.6wks VSS UA wnl NST reactive (verified by 2 RNs) BPP WNL FKC/PTL precautions reviewed Condition on Discharge: Stable Disposition: Home Discharge Instructions: Diet: Consistent carbohydrate Activity: No Restrictions, As Tolerated Medications: see med list Follow Up Care: Specialist: f/u in 3 days Discharge Statement: "Patient was advised to return to the ER or call 911 if any headaches, dizziness, shortness of breath, chest pain, abdominal pain, bleeding, fevers, or worsening of medical condition. Patient was counseled about treatment plan, medications, possible side effects, patientverbalized understanding. All questions were answered to the best of my ability. This discharge took greater then 30 minutes in planning, reviewing d ocumentation, counseling the patient, and discussing with other team members." ROSA ZIMMERMAN CNM Mar 13, 2024 20:40
[2024-03-14 08:06] LABS: RPR Non Reactive (Non Reactive)
== END 2024-03-13 14:25 | disposition home or self-care (01) ==
LOC: LDRP 03-13 12:30 → UNDOADMOB 03-13 12:30 → LDRP 03-13 12:48
PROVIDERS: ADMIT Obstetrics & Gynecology; ATTEND Obstetrics & Gynecology
DX: O24.419 Gestational diabetes mellitus in pregnancy, unspecified control (principal); Z3A.36 36 weeks gestation of pregnancy
CPT/HCPCS: 36415; 76818; 82962; 83036; 85025; 86592; G0378; 59025; 81002; 82948

== ENCOUNTER 2024-03-09 19:09 | Observation (INO) | payer MEDICAID ==
[~2024-03-09] VITALS: Ht 162.6 cm; Wt 87.1 kg
--- NOTE | 2024-03-09 21:38 | DVH ---
EXAM: US BIOPHYSICAL PROFILE HISTORY: GDM A2 COMPARISON: US BIOPHYSICAL PROFILE on DOS: 03/03/24, US BIOPHYSICAL PROFILE on DOS: 02/28/24, US BIOPH YSICAL PROFILE on DOS: 02/21/24 TECHNIQUE: Multiple transabdominal real-time grayscale sonographic images through the gravid uterus of the fetus with duplex Doppler color flow and M-mode spectral analysis Findings/Impression: Single live intrauterine in vertex presentation with heart rate of 142 bpm. Sonograph er notes visualized activity and respirations. Biophysical profile was performed with 2 points for respirations, 2 points for movement, 2 points for tone and 2 points for amniotic fluid index. Biophysical profile score of 8/8. Amniotic fluid is within normal limits with KIMI 15.6 cm and MVP 5.3 cm. Normal KIMI (5-25 cm) Normal MVP (2-8 cm)
--- NOTE | 2024-03-09 22:34 | DVHDS2 ---
Physician Discharge Progress N Final Diagnosis: GDMA2 Operations or Procedures: Operations or Procedures NST/BPP/KIMI Accucheck Commentary: Commentary status reassuring Condition on Discharge: Stable Disposition: Home Discharge Instructions: Diet: Consistent carbohydrate Activity: No Restrictions, As Tolerated Follow Up/Referral: RETURN TO BIRTHPLACE ON 03/13/24 AT 12PM FOR SCHEDULED NST/BPP. FOR ANY RELATED CONCERNS GO TO NEAREST HOSPITAL Medications: PLEASE TAKE ALL MEDICATIONS PRESCRIBED AND CONTINUE CHECKING BLOOD SUGAR DIRECTED Follow Up Care: Discharge Statement: "Patient was advised to return to the ER or call 911 if any headaches, dizziness, shortness of breath, chest pain, abdominal pain, bleeding, fevers, or worsening of medical condition. Patient was counseled about treatment plan, medications, possible side effects, patientverbalized understanding. All questions were answered to the best of my ability. This discharge took greater then 30 minutes in planning, reviewing documentation, counseling the patient, and discussing with other team members." ERNESTO SANTIAGO DO Mar 09, 2024 22:34
== END 2024-03-09 22:15 | disposition home or self-care (01) ==
LOC: LDRP 19:09
PROVIDERS: ADMIT Obstetrics & Gynecology; ATTEND Obstetrics & Gynecology
DX: O24.419 Gestational diabetes mellitus in pregnancy, unspecified control (principal); Z3A.36 36 weeks gestation of pregnancy
CPT/HCPCS: 59025; 76818; 81002; 94760; G0378

== ENCOUNTER 2024-03-15 13:52 | Observation (INO) | payer MEDICAID ==
--- NOTE | 2024-03-15 15:55 | DVH ---
BIOPHYSICAL PROFILE HISTORY: gdma2 TECHNIQUE: Multiple transabdominal real-time grayscale sonographic images through the gravid uterus of the fetus with duplex Doppler color flow and M-mode spectral analysis FINDINGS: BIOPHYSICAL PROFILE: breathing score: 2 movement score: 2 tone score: 2 Quantitative KIMI score: 2 (KIMI: 17.4 Cm.) Total score: 8/8 Single live fetus in cephalic presentation. heart rate 134 beats per minute. Fundal/posterior placenta without previa or abruption IMPRESSION: 1. Biophysical profile score: 8/8 HS:Y
--- NOTE | 2024-03-15 19:04 | DVHDS2 ---
Physician Discharge Progress N Final Diagnosis: GDM Operations or Procedures: Operations or Procedures NST,SONO Condition on Discharge: Good Disposition: Home Discharge Instructions: Diet: Consistent carbohydrate Activity: No Restrictions, As Tolerated Medications: NA Follow Up Care: Specialist: 3D Discharge Statement: "Patient was advised to return to the ER or call 911 if any headaches, dizziness, shortness of breath, chest pain, abdominal pain, bleeding, fevers, or worsening of medical condition. Patient was counseled about treatment plan, medications, possible side effects, patientverbalized understanding. All questions were answered to the best of my ability. This discharge took greater then 30 minutes in planning, reviewing documentation, counseling the patient, and discussing with other team members." KAYA SANCHEZ DO Mar 15, 2024 19:04
== END 2024-03-15 16:31 | disposition home or self-care (01) ==
LOC: LDRP 15:03
PROVIDERS: ADMIT Obstetrics & Gynecology; ATTEND Obstetrics & Gynecology
DX: O24.419 Gestational diabetes mellitus in pregnancy, unspecified control (principal); O62.9 Abnormality of forces of labor, unspecified; O36.8130 Decreased fetal movements, third trimester, not applicable or unspecified; Z3A.37 37 weeks gestation of pregnancy
CPT/HCPCS: 59025; 76818; 81002; 82948; 94762; G0378

== ENCOUNTER 2024-03-20 12:25 | Observation (INO) | payer MEDICAID ==
--- NOTE | 2024-03-20 13:48 | DVH ---
BIOPHYSICAL PROFILE HISTORY: GDMA2 TECHNIQUE: Multiple transabdominal real-time grayscale sonographic images through the gravid uterus of the fetus with duplex Doppler color flow and M-mode spectral analysis FINDINGS: BIOPHYSICAL PROFILE: breathing score: 2 movement score: 2 tone score: 2 Quantitative KIMI score: 2 (KIMI: 17.6 Cm.) Total score: 8/8 Single live fetus in cephalic presentation. heart rate T2 beats per minute. Posterior placenta without previa or abruption IMPRESSION: 1. Biophysical profile score: 8/8 HS:Y
--- NOTE | 2024-03-20 19:15 | DVHDS2 ---
Physician Discharge Progress N Final Diagnosis: testing for GDM, A2 Operations or Procedures: Operations or Procedures 33yo IUP@37.6, takes insulin for GDM, A2 VSS UA wnl NST reactive (verified by 2 RNs) BPP wnl FKC/PTL/PreE precautions reviewed. Condition on Discharge: Stable Disposition: Home Discharge Instructions: Diet: Consistent carbohydrate Activity: No Restrictions, As Tolerated Medications: see med list Follow Up Care: Specialist: f/u on 03/22/24 for scheduled IOL for GDM, A2 Discharge Statement: "Patient was advised to return to the ER or call 911 if any headaches, dizziness, shortness of breath, chest pain, abdominal pain, bleeding, fevers, or worsening of medical condition. Patient was counseled about treatment plan, medications, possible side effects, patientverbalized understanding. All questions were answered to the best of my ability. This discharge took greater then 30 minutes in planning, reviewing documentation, counseling the patient, and discussing with other team members." ROSA ZIMMERMAN CNM Mar 20, 2024 19:14
== END 2024-03-20 14:27 | disposition home or self-care (01) ==
LOC: LDRP 12:25
PROVIDERS: ADMIT Obstetrics & Gynecology; ATTEND Obstetrics & Gynecology
DX: O24.419 Gestational diabetes mellitus in pregnancy, unspecified control (principal); Z3A.37 37 weeks gestation of pregnancy; Z79.899 Other long term (current) drug therapy; Z98.890 Other specified postprocedural states
CPT/HCPCS: 59025; 76818; 81002; 82948; 94760; G0378

== ENCOUNTER 2024-03-22 12:51 | Inpatient (IN) | payer MEDICAID ==
[~2024-03-22] VITALS: Ht 162.6 cm; Wt 88.0 kg
[2024-03-22] MEDS ORDERED: LIDOCAINE 2%HCL (LOCAL ANESTH.) INJ 20ML MDV IJ PRN (23:30)
[2024-03-22] MEDS ORDERED: NALBUPHINE HCL 10 MG/1ml INJECTION IV PRN (23:30)
[2024-03-22] MEDS: ACCU-CHEK COMFORT CURVE STRIP VI SCH (23:30)
[2024-03-22] MEDS ORDERED: miSOPROStol 50 MCG per PRE-CUT 1/2 TAB PO PRN (23:30)
[2024-03-23 00:21] LABS: Basophils # (auto) 0 10 ^3/uL (0-0.2); Basophils % (auto) 0.4 % (0.0-2.0); Eosinophils # (auto) 0.1 10 ^3/uL (0-0.8); Eosinophils % (auto) 0.8 % (0.0-7.0); Hematocrit 36.5 % (36.0-46.0); Hemoglobin 12.7 g/dL (12.2-16.2); Lymphocytes # (auto) 2.3 10 ^3/uL (0.4-5.4); Lymphocytes % (auto) 24.6 % (10.0-50.0); Mean Corpuscular Hemoglobin 31.2 pg (28.0-32.0); Mean Corpuscular Hgb Conc. 34.9 g/dL (32.0-36.0); Mean Corpuscular Volume 89.5 fL (80.0-100.0); Monocytes # (auto) 0.6 10 ^3/uL (0-1.3); Monocytes % (auto) 6.5 % (0.0-12.0); Neutrophils # (auto) 6.3 10 ^3/uL (1.6-8.6); Neutrophils % (auto) 67.7 % (37.0-80.0); Platelet Count (auto) 247 10^3/uL (140-450); Red Blood Cells 4.08 10^6/uL (4.0-5.20); Red Cell Distribution Width 14.9 % (11.8-14.3); White Blood Cell 9.4 10^3/uL (4.4-10.8)
[2024-03-23 00:22] LABS: Urine Bacteria None Seen /hpf (None Seen)
[2024-03-23 00:44] LABS: Alanine Aminotransferase 10 U/L (7-40); Albumin 4.2 g/dL (3.2-4.8); Alkaline Phosphatase 125 U/L (46-116); Anion Gap 10 (5-15); Aspartate Aminotransferase 8 U/L (13-40); BUN/Creatinine Ratio 14.5 (10.0-20.0); Bilirubin, Total 0.7 mg/dL (0.2-1.0); Blood Urea Nitrogen 8 mg/dL (9-23); Calcium 9.9 mg/dL (8.7-10.4); Carbon Dioxide 20 mmol/L (20-31); Chloride 106 mmol/L (98-107); Glucose 139 mg/dL (74-106); Potassium 3.6 mmol/L (3.5-5.1); Sodium 136 mmol/L (136-145); Total Protein 6.9 g/dL (5.7-8.2)
[2024-03-23 00:51] LABS: INR 0.95 (0.9-1.15); Partial Thromboplastin Time 27.6 SEC (24.5-34.5); Prothrombin Time 10.1 sec (9.3-11.8)
[2024-03-23 01:08] LABS: Urine Blood Negative /uL (Negative); Urine Clarity Clear (Clear); Urine Color Yellow (Yellow); Urine Mucus FEW (None Seen); Urine Protein, UAD TRACE (Negative); Urine Specific Gravity 1.032 (1.001-1.035); Urine Urobilinogen Normal (Negative); Urine WBC <1 /hpf (0 - 5); Urine pH 5.5 (5.0-9.0)
[2024-03-23 01:32] LABS: Amphetamine Screen, Urine Neg (NEGATIVE); Barbiturate Scree,Urine Neg (NEGATIVE); Benzodiazephine Screen, Urine Neg (NEGATIVE); Cannabinoid Screen, Urine Neg (NEGATIVE); Cocaine Screen, Urine Neg (NEGATIVE); Opiate Scree,Urine Neg (NEGATIVE); Phencyclidine Screen, Urine Neg (NEGATIVE)
--- NOTE | 2024-03-23 02:42 | DVHHP ---
ADMIT DATE: 03/22/2024 CHIEF COMPLAINT: Here for induction of labor. HISTORY OF PRESENT ILLNESS: The patient is a 33-year-old 6, para 4 with EDC 04/04, estimated gestational age of 38+ weeks, admitted for induction of labor secondary to uncontrolled GDMA2. The patient has been noncompliant and her blood sugars have been high. I discussed the management with Dr. Giang who recommends delivery. The patient is at risk for intrauterine demise. Subsequently, the patient was brought in for an induction of labor. PAST MEDICAL HISTORY: None. PAST SURGICAL HISTORY: None. SOCIAL HISTORY: None. FAMILY HISTORY: None. OBSTETRIC AND GYNECOLOGIC HISTORY: Four normal vaginal deliveries. REVIEW OF SYSTEMS: Consistent with HPI. PHYSICAL EXAMINATION: VITAL SIGNS: Stable, afebrile. HEENT: Within normal limits. CARDIOVASCULAR: Regular rate and rhythm. LUNGS: Clear to auscultation. BREASTS: Symmetrical. No masses. ABDOMEN: Gravid. Positive heart. PELVIC: 3.5 cm, 60%, -3. EXTREMITIES: No clubbing, cyanosis or edema. IMPRESSION: * Intrauterine at 38+ weeks, induction of labor for uncontrolled diabetes. * Noncompliance. PLAN: Induction of labor. We will proceed with Cytotec. Informed consent obtained. Risks, complications, alternatives, possibility of bleeding, infection, increased risk of discussed with the patient. Options reviewed. All questions answered. The patient fully understands. She wishes to proceed with planned procedure. DO STEFANY Jaimes TID: [id number] RECEIPT: [id number]
[2024-03-23] MEDS: WITCH HAZEL-GLYCERIN PAD TOP PRN (04:32)
[2024-03-23] MEDS: PHISODERM TOP SOLN 240ML BTL TOP PRN (04:33)
[2024-03-23] MEDS: DERMOPLAST 60ML BOTTLE TOP PRN (04:33)
[2024-03-23] MEDS: LACTATED RINGER'S 1,000 ML IV SCH (04:33)
[2024-03-23] MEDS ORDERED: CARBOPROST TROMETHAMINE 250 MCG/1ML VIAL IM PRN (06:00)
[2024-03-23] MEDS ORDERED: ONDANSETRON HCL 4 MG/2 ML VIAL IV PRN (06:00)
[2024-03-23] MEDS ORDERED: ePHEDrine SULFATE 50 MG/ML AMP IV ONE (07:00)
[2024-03-23] MEDS ORDERED: ROPIVACAINE HCL 200 ML ONE (07:02)
[2024-03-23] MEDS: LACTATED RINGER'S 1,000 ML IV ONE (08:05)
[2024-03-23] MEDS: LACT. RINGERS/OXYTOCIN 20UNITS 1,000 ML IV SCH (08:28)
[2024-03-23] MEDS ORDERED: TRANEXAMIC ACID 1,000 MG in SODIUM CHL 0.9% 100 ML IV ONE (09:45)
[2024-03-23] MEDS ORDERED: miSOPROStol 100 mcg TAB PR PRN (09:45)
[2024-03-23] MEDS ORDERED: miSOPROStol 100 mcg TAB SL PRN (09:45)
[2024-03-23] MEDS ORDERED: DIPHENOXYLATE W/ATROPINE 2.5 MG TAB PO SCH (10:00)
[2024-03-23] MEDS ORDERED: ACETAMINOPHEN 325 MG TAB PO PRN (11:30)
[2024-03-23] MEDS: METHYLERGONOVINE MALEATE 0.2 MG/ML AMP IM PRN (11:52)
--- NOTE | 2024-03-23 11:57 | LDN2 ---
Labor and Delivery Note Date 03/23/24 Age 33 6 Para 5 AB 1 EGA 38+ Diagnosis GDMA2, Labor- Delivered Vaginal Delivery: VTX Vacuum Assisted: No Placenta: Spontaneous Sex: Male Weight 8lb1oz Apgars 8/9 Amniotic Fluid: Clear Anesthesia Epidural Episiotomy: Yes Extension: No Repaired with 3-0 chromic EBL 100 mL Labs Blood Bank 03/22/24 23:50: Blood Type O POSITIVE Complications None ERNESTO SANTIAGO DO Mar 23, 2024 11:57
[2024-03-23] MEDS: LACT. RINGERS/OXYTOCIN 20UNITS 500 ML IV ONE ×2 (12:25→12:26)
[2024-03-23 14:10] VITALS: BP 124/78; PULSE 75; RESP 20; TEMP 98
[2024-03-23] MEDS: ROPIVACAINE HCL 400mg/200ml BAG (2mg/ml) EPI ONE (17:03)
[2024-03-23 19:00] VITALS: BP 104/64; PULSE 84; RESP 18; TEMP 97.9; O2SAT 96
[2024-03-23] MEDS: DOCUSATE SOD 100 MG CAP PO SCH (22:04)
[2024-03-23 23:00] VITALS: BP 109/76; PULSE 82; RESP 18; TEMP 97.9; O2SAT 96
[2024-03-24 03:00] VITALS: BP 92/55; PULSE 72; RESP 18; TEMP 98; O2SAT 96
[2024-03-24] MEDS: IBUPROFEN 600 MG TAB PO PRN (04:15)
--- NOTE | 2024-03-24 06:55 | DVHPN2 ---
Progress Note Date Seen: Mar 24, 2024 Subjective PPD#1 s/p Doing well, lochia minimal, no pain. Voiding well. Eating well vital signs Vital Sign Date Time Temp Pulse Resp B/P (MAP) Pulse Ox O2 Delivery O2 Flow Rate FiO2 03/24/24 03:00 98.0 72 18 92/55 (67) 96 98.0 03/23/24 19:00 Room Air Total Intake and Output 03/23/24 03/23/24 03/24/24 15:00 23:00 07:00 Output Total 1000 ml 800 ml Balance -1000 ml -800 ml medications Current Medications Medications Dose Ordered Sig/Argelia Route Start Time Stop Time Status Last Admin Dose Admin Lactated Ringer's 1,000 ml @ 125 mls/hr Q8H IV 03/22/24 23:30 03/23/24 04:33 125 MLS/HR Diagnostic Test (Pha) 1 strip Q4H 03/22/24 23:30 Mikala Salcido 1 pad PRN PRN TOP 03/22/24 23:30 03/23/24 14:18 1 PAD Sodium Lauryl Sulfate 240 ml PRN PRN TOP 03/22/24 23:30 03/23/24 14:18 240 ML Benzocaine 1 applic PRN PRN TOP 03/22/24 23:30 03/23/24 14:18 1 APPLIC Ondansetron HCl 4 mg Q4HP PRN IV 03/23/24 06:00 Ibuprofen 600 mg Q6HP PRN PO 03/23/24 11:30 03/24/24 04:15 600 MG Acetaminophen 650 mg Q4HP PRN PO 03/23/24 11:30 Docusate Sodium 200 mg HS PO 03/23/24 22:00 03/23/24 22:04 200 MG laboratory and microbiology Laboratory Tests 03/22/24 23:50 Test 03/22/24 23:50 Range/Units Serum Glucose 139 H 74-106 mg/dL Objective O: AFVSS Chest: heart and lung sounds normal. Abd soft, non-tender, fundus firm, BS, no rebound or guarding, Ext Neg Homans, Non-tender, edema Lochia - minimal Labs Reviewed Assessment/Plan PPD#1 s/p doing well Plan Advance orders D/C to home today F/U in office in 2 wk Plan discussed with: Patient NEELIMANuviaERNESTO Mar 24, 2024 06:55
--- NOTE | 2024-03-24 06:56 | DVHDS2 ---
Physician Discharge Progress N Final Diagnosis: Term , delivered Secondary Diagnosis: Gestational diabetes Operations or Procedures: Operations or Procedures Induction of labor with Condition on Discharge: Stable Disposition: Home Discharge Instructions: Diet: Consistent carbohydrate Activity: Light activity Follow Up/Referral: [address] Lerner Medications: No new meds Follow Up Care: Discharge Statement: "Patient was advised to return to the ER or call 911 if any headaches, dizziness, shortness of breath, chest pain, abdominal pain, bleeding, fevers, or worsening of medical condition. Patient was counseled about treatment plan, medications, possible side effects, patientverbalized understanding. All questions were answered to the best of my ability. This discharge took greater then 30 minutes in planning, reviewing documentation, counseling the patient, and discussing with other team members." ERNESTO SANTIAGO DO Mar 24, 2024 06:56
[2024-03-24] MEDS ORDERED: IBUP-1454 PO (06:58)
[2024-03-24 07:06] LABS: RPR Non Reactive (Non Reactive)
[2024-03-24 07:30] VITALS: BP 105/56; PULSE 69; RESP 17; TEMP 98; O2SAT 97
[2024-03-24 11:30] VITALS: BP 107/74; PULSE 90; RESP 15; TEMP 98.2; O2SAT 99
== END 2024-03-24 12:10 | disposition home or self-care (01) | DRG 560 ==
LOC: LDRP 23:19
PROVIDERS: ADMIT Obstetrics & Gynecology; ATTEND Obstetrics & Gynecology
PROC: 10E0XZZ Delivery of Products of Conception, External Approach (ICD-10-PCS; principal; 2024-03-23)
PROC: 0W8NXZZ Division of Female Perineum, External Approach (ICD-10-PCS; 2024-03-23)
PROC: 3E0R3BZ Introduction of Anesthetic Agent into Spinal Canal, Percutaneous Approach (ICD-10-PCS; 2024-03-23)
PROC: 00HU33Z Insertion of Infusion Device into Spinal Canal, Percutaneous Approach (ICD-10-PCS; 2024-03-23)
DX: O24.425 Gestational diabetes mellitus in childbirth, controlled by oral hypoglycemic drugs (principal); Z37.0 Single live birth; Z91.199 Patient's noncompliance with other medical treatment and regimen due to unspecified reason; Z3A.38 38 weeks gestation of pregnancy
CPT/HCPCS: 36415; 59025; 80053; 80307; 81001; 81002; 82948; 82962; 85025; 85610; 85730; 86592; 86803; 86850; 86900; 86901; 94760; 94762; 96360; 96361; G0378; J2590